=== PATIENT | female | born 1990 | race Caucasian/White ===

== ENCOUNTER 2016-07-29 06:15 | Inpatient (IN) | payer OTHER ==
[2016-07-29] MEDS ORDERED: SODIUM CHLORIDE 0.9% 500 ML IV PRN (07:00)
[2016-07-29] MEDS ORDERED: NALOXONE HCL 0.4 MG/ML VIAL IV PRN (07:00)
[2016-07-29] MEDS ORDERED: EPHEDRINE SULFATE 50 MG/ML 1ML VIAL IV PRN (07:00)
[2016-07-29] MEDS ORDERED: LACTATED RINGERS 1,000 ML IV SCH (07:00)
[2016-07-29] MEDS ORDERED: ONDANSETRON 4 MG/2ML 2 ML VIAL IV PRN (07:00)
[2016-07-29] MEDS ORDERED: DIPHENHYDRAMINE HCL 50 MG/1 ML VIAL IV PRN (07:00)
[2016-07-29] MEDS ORDERED: LACTATED RINGERS 500 ML IV PRN (07:00)
[2016-07-29] MEDS ORDERED: NALBUPHINE HCL 20 MG/ML AMP IV PRN (07:00)
[2016-07-29] MEDS ORDERED: METOCLOPRAMIDE HCL 5 MG/ML 2ML VIAL IV PRN (07:00)
[2016-07-29] MEDS ORDERED: IV START KIT ONE (07:14)
[2016-07-29] MEDS ORDERED: SODIUM CHLORIDE 0.9% FLUSH 10 ML ONE (07:14)
[2016-07-29] MEDS ORDERED: OXYTOCIN 10 UNITS/ML VIAL ONE (07:14)
[2016-07-29] MEDS ORDERED: MINERAL OIL 25 ML BOT ONE (07:14)
[2016-07-29] MEDS ORDERED: LIDOCAINE 1% (PRES FREE) 30 ML VIAL ONE (07:14)
[2016-07-29] MEDS ORDERED: PUMP TUBING ONE (07:15)
[2016-07-29] MEDS ORDERED: OXYTOCIN IN LR 0 ML IV ONE (07:15)
[2016-07-29] MEDS ORDERED: LIDOCAINE Viscous 2% 15 ML UDCUP ONE (07:15)
[2016-07-29 07:56] LABS: HEMOGLOBIN 13.6 gm/l (12.0-16.0); MEAN CELL VOLUME 91.7 fl (81.0-99.0); MEAN CORPUSCULAR HEMOGLOBIN 31.2 pg (27.0-31.0); RED CELL DISTRIBUTION WIDTH 12.4 % (11.5-14.5)
[2016-07-29 08:25] VITALS: BMI 23.1
[2016-07-29] MEDS ORDERED: LACTATED RINGERS 1,000 ML ONE (08:25)
[2016-07-29] MEDS ORDERED: FENTANYL/ROPIVACAINE EPIDURAL 250 ML EP ONE (08:26)
[2016-07-29] MEDS ORDERED: EPIDURAL PUMP SET ONE (08:26)
[2016-07-29] MEDS: LACTATED RINGERS 1,000 ML IV SCH ×3 (08:45→15:41)
[2016-07-29] MEDS ORDERED: EPIDURAL PROCEDURE TRAY ONE (08:58)
[2016-07-29] MEDS ORDERED: BUPIVACAINE 0.25% (PRES FREE) 30 ML VIAL ONE (08:58)
[2016-07-29] MEDS: FENTANYL/ROPIVACAINE EPIDURAL 250 ML EP SCH (09:20)
--- NOTE | 2016-07-29 15:15 | PCMAN ---
OB Admission Note - History : 1 Term: 0 : 0 Abortions (S&E): 0 Livin EDC:: 08/05/16 Gestational Age (weeks): 39 Days (#/7): 0 Admit Cervical Dilation:: 4.5 Admit Cervical Effacement (%):: 70 Admit Station:: -1 Admit Presentaton:: cephalic Membrane Status: Ruptured Rupture (Date): 07/29/16 Rupture (Time): 04:00 Labor Onset (Date): 07/29/16 Contractions: Yes Contraction Frequency:: q 2.5-3.5 minutes, lasting 40-80 seconds Heart Rate:: 130 (moderate variability, accels present, no decels) Status:: Cat I EFW:: 6lb 8oz Summary of Course:: onset of care at 7w5d for 14 visits, dating by sure LMP and verified by first trimester US US at 8w2d, small perigestational hemorrhage US at 13w, small perigestational hemorrhage US at 29w2d, for S<D, normal growth, MANSOOR 17.5 US at 34w, for S<D, normal growth complicated by Denominational (declines blood products), and measuring S<D (normal growth on US) - Labs Blood Type: A (+) positive Hct/Hgb:: 11.3 Rubella Status: Immune GBS Status: Negative Abnormal Labs: None - Review of Systems all negative, some mild constipation - Physical Exam General: Afebrile Psych/Mental Status: Mood/Affect Appropriate Neurological: Grossly Intact, Alert Abdomen: Other (contractions q 2.5-3.5 minutes) Genitourinary: Normal Female Genitalia (SVE- 4.5/70/-1, cervix soft and midposition) - Problems (1) Active labor at term Status: Acute Code: [id number] Assessment/Plan: A: IUP at 39w GBS negative ROM x 3 hours, SOOC Moving into active labor Denominational- declining blood products Category I P: Admit to [facility]BC, place saline lock, order CBC Patient desires to have unmedicated , but feels uncertain as labor increases in intensity, Encouraged to keep using movement and hydrotherapy, Increase hands on support as labor increases Keep exams to minimum Anticipate IA per protocol as status remains reassuring DO Coronel
--- NOTE | 2016-07-29 15:17 | PDOC36 ---
Provider Note Subject: CNM Labor Progress Note Note: S: Florencia is resting with a recently placed epidural. Feels relief from contractions, mild irritation/ pressure from catheter placement. Reassured that this should decrease with epidural. Feels good about her decision, used tub for pain relief prior to epidural placement, reports that contractions were difficult to get on top of. Supported by mother in law Alberta and Seng. O: VSS BP 108/64, P 78 bpm, T98.0, RR 20/min cEFM: baseline 120, moderate variability, accelerations 15x15 present, no decelerations TOCO: contractions 2-5 minutes apart, lasting 40-60 seconds apart A: IUP at 39 weeks Category I Active labor GBS neg ROM x [address] Hoahaoism- declining blood products P: Discussed balancing resting with epidural and changing positions. cEFM Explained how epidural changes sensations of labor, what 2nd stage may feel like , and to notify us if there is an increase in pelvic pressure DO Coronel
[2016-07-29] MEDS ORDERED: HYDROCODONE/ACETAMINOPHEN 5/325MG TABLET PO PRN (20:18)
[2016-07-29] MEDS ORDERED: ACETAMINOPHEN 325 MG TABLET PO PRN (20:18)
[2016-07-29] MEDS ORDERED: LANOLIN 50 APPLIC/7G TUBE TP PRN (20:18)
[2016-07-29] MEDS ORDERED: BENZOCAINE/MENTHOL 60 APPLIC/BOT TP PRN (20:18)
[2016-07-29] MEDS ORDERED: CALCIUM CARBONATE 500 MG TAB.CHEW PO PRN (20:18)
--- NOTE | 2016-07-29 21:18 | PDOC36 ---
Provider Note Subject: CNM Labor Progress Note Note: S: Resting with contractions, feels pressure with contractions, but states that it is not continuous. Able to nap and rest. O: VSS BP 100/53, P 75 bpm, T98.2, RR 18/min cEFM: baseline 135, moderate variability, accelerations absent, variable decelerations TOCO: contractions 2-3 minutes apart, lasting 60-120 seconds apart A: IUP at 39 weeks Category II Active labor GBS neg ROM x [address] Restorationist- declining blood products P: Discussed to notify RN/ CNM team when pressure is felt between contractions Anticipate DO Coronel
--- NOTE | 2016-07-29 21:28 | PCMDEL ---
<Priya Mederos - Last Filed: 07/29/16 20:26> Delivery Note - Labor 1st stage (hr/min):: 15 hr 19 min 2nd stage (hr/min):: 2 hr 05 min 3rd stage (hr/min):: 0 hr 08 min Total (hr/min):: 17 hr 32 min Pushed (hr/min):: 1 hr 41 min - Delivery Delivery (Date): 07/29/16 Delivery (Time): 17:41 Gender: Male Weight: 7 lb 2 oz Length: 8.17 in Presentation: Cephalic Position: OA Umbilical Cord: 3 Vessel Delayed Cord Clamping:: > 3 min 1 Minute Total: 9 5 Minute Total: 9 Placenta:: complete, membranes trailing and intact EBL:: 300 Perineum:: 2nd degree laceration, see note Suture:: 3.[address] Anesthesia/Meds:: epidural Length ROM:: 17 hr 24 min Comments:: Concha Garces is a 25 year old at 39 weeks, who called with a complaint of ROM on 07/29/15 at 0400. She reported SOOC soon after rupture and came to the [facility]. Upon admission at 0645 on 07/29/15, she was found to be 4.5/70/-1 and was moving into active labor. Her was complicated by S<D with normal growth ultrasound and a small perigestational hemorrhage in the first trimester. She declines blood transfusion for zoroastrian reasons, was GBS negative, and had normal labs throughout . During the first stage of labor, she used hydrotherapy and movement for coping and requested an epidural for pain management. Her labor progressed upon a normal course with Category I tracing throughout the first stage. She was found to be complete at 1536 and labored down for approximately 20 minutes. For second stage, Florencia utilized a variety of positions and pushed effectively with contractions. Variable decelerations to the 90s were noted, most variables were <60 seconds and recovered with moderate variability, three variable decelerations lasted approximately 2 minutes and were responsive to ameliorative measures- oxygen, position changes, and pushing with every other contraction. She achieved a of baby boy, Nain, at 1741 on 07/29/16. Apgars were 9 and 9. Shoulders delivered easily and baby was brought to maternal abdomen. Delayed cord clamping was facilitated for greater than four minutes. [place] had elevated temperatures in immediate , no other s/s of infection, will be worked up for infection with antibiotic course started. Please see note. Placenta delivered easily in Gonzalez position, trailing membranes were resolved by twisting the placenta. 3VC was noted. Fundus was found to be firm and at umbilicus. Mild bleeding was noted, fundal massage expresed small clots. EBL was 300mL. Visualization of the perineum revealed small (<0.5cm) bilateral periurethral 1st degree lacerations, left one was repaired to avoid adhesion. A small right labial laceration was noted and repaired with interrupted sutures. A shallow second degree perineal laceration was repaired in the usual fashion. Suture used was 3.0 vicryl suture. Patient was hemostatic and used epidural for pain relief during repair. Baby was latched by 30 minutes, mom and baby were stable. DO Coronel <Cezar Betancourt - Last Filed: 07/29/16 21:27> Delivery Note - Delivery Comments:: During 2nd stage, tachycardia was noted with the baseline as high as 165. Highest maternal temperature during labor was 99.2F and immediately after delivery was 99.5F. Fluid remained clear without mal odor. Prior to delivery, a diagnosis of chorioamnionitis was not made because diagnostic criteria was not met, however the was noted to have elevated temperatures and heartrate immediately after . On-call peds was notified of status, who plans to do an infection work-up.
[2016-07-29] MEDS ORDERED: MENTHOL/CETYLPYRD 1 EACH LOZENGE PO PRN (22:14)
[2016-07-29] MEDS: IBUPROFEN 800 MG TABLET PO SCH (22:27)
[2016-07-30] MEDS: IBUPROFEN 800 MG TABLET PO SCH ×4 (04:30→22:39)
[2016-07-30] MEDS: DOCUSATE SODIUM 100 MG CAPSULE PO SCH (10:09)
[2016-07-31] MEDS: IBUPROFEN 800 MG TABLET PO SCH ×3 (04:25→18:42)
[2016-07-31] MEDS: DOCUSATE SODIUM 100 MG CAPSULE PO SCH (08:16)
--- NOTE | 2016-07-31 09:04 | PDOC44 ---
- Subjective Day: 1 S: Resting in bed. Supported at bedside by sister, mother and FOB. Very happy about experience. Reports that pain is well managed with Ibuprofen. Bleeding getting pt sitter. Laceration sore but patient able to ambulate and void without difficulty. exclusively. Infant drowsy and has only had one good latch so far. Patient waking every 3 hours to feed and hand expressing colostrum. Reports Pain Tolerable, Reports , Reports Lochia Light, Reports Tolerating Clear Liquids, Reports Tolerating Regular Diet, Denies Vomiting, Denies Fever - Objective Temp Pulse Resp BP Pulse Ox 97.4 F 77 16 107/64 07/31/16 08:00 07/31/16 08:00 07/31/16 08:00 07/31/16 08:00 Current Medications Generic Name Dose Route Start Last Admin Trade Name Freq PRN Reason Stop Dose Admin Acetaminophen 325 - 650 mg 07/29/16 20:18 Tylenol PO Q4H PRN Pain (Mild) Acetaminophen/Hydrocodone Bitart 1 - 2 tab 07/29/16 20:18 [place] 5/325 PO Q4H PRN Pain (Moderate) Benzocaine/Menthol 1 applic 07/29/16 20:18 07/30/16 10:09 Dermoplast TP 1 bot PRN PRN Administration Patient Comfort Benzocaine/Menthol 1 each 07/29/16 22:14 07/29/16 22:27 Cepacol PO 1 each Q2H PRN Administration Sore Throat Calcium Carbonate/Glycine 500 - 1,000 mg 07/29/16 20:18 Tums PO BID PRN Indigestion Docusate Sodium 100 mg 07/30/16 09:00 07/31/16 08:16 Colace PO 100 mg DAILY GIANNI Administration Emollient Ointment 1 applic 07/29/16 20:18 07/30/16 18:33 [id number]-[id number] TP 1 tube PRN PRN Administration sore nipples Ropivacaine/Fentanyl/NS 250 mls @ 0 mls/hr 07/29/16 07:00 07/29/16 09:20 Fentanyl 2 Mcg/Ml + Ropivacaine 0.125% Ep Bag EP 10 mls/hr EPI GIANNI Administration Protocol Per Protocol Ibuprofen 800 mg 07/29/16 21:00 07/31/16 04:25 Motrin PO 800 mg Q6H GIANNI Administration Sodium Chloride 10 ml 07/29/16 20:18 Normal Saline 10ml Flush IV PRN PRN IV Flush Sodium Chloride 10 ml 07/30/16 01:00 Normal Saline 10ml Flush IV Q8HR GIANNI - Physical Exam General: Afebrile, No Acute Distress Psych/Mental Status: Mood/Affect Appropriate, Judgment/Insight Intact, Bonding Well Neurological: Grossly Intact, Alert, Oriented x 4 Breast: Soft, Skin intact, Nipples Intact, No Tenderness, No Erythema Fundus: Firm, Midline, Below Umbilicus Genitourinary: Normal Female Genitalia, Edema (mild), Other (Sutures intact; laceration approximated) Lochia: Light Extremities: Full ROM, No Edema - Problems:Assessment/Plan (1) care and examination of lactating mother Status: Acute Assessment/Plan: Day 1 Stable course Plan: Anticipate discharge tomorrow Encouraged support tonight with breast feeding as becomes more vigorous Discussed followup Disposition: Anticipate DC to Home
--- NOTE | 2016-07-31 09:39 | PDOC39B ---
Hospital Course: ADMIT DATE: 07/29/16 DISCHARGE DATE: 07/31/16 ADMISSION DIAGNOSES: Active Labor PROCEDURES: HISTORY OF PRESENT ILLNESS: 25 year old G1 T0 L0 at 39 weeks 0 days presenting with active labor. HOSPITAL COURSE: The patient is doing well this morning. She didn't sleep much last night and complains of a headache this morning. Encouraged to take Tylenol or Ibuprofen. She is - the baby had a long stretch between feeds last night, almost 12 hours. Discussed how baby's can have a lack of interest in in the first 24 hours and then the next day they usually wake up and want to nurse more. Encouraged Florencia to wake the baby about every 3 hours if he doesn't wake up by himself. Night time feedings are important and without those he will lose too much weight. Also advised seeing before she leaves and following up with them after discharge. She reports minimal bleeding and cramping. Eating, drinking and voiding without problems. Requests Ibuprofen to take home. All questions answered. By day of discharge the patient is stable, well and ready to go home. - Physical Exam Vital Signs: Temp Pulse Resp BP Pulse Ox 97.4 F 77 16 107/64 07/31/16 08:00 07/31/16 08:00 07/31/16 08:00 07/31/16 08:00 General: Afebrile Psych/Mental Status: Mood/Affect Appropriate Neurological: Grossly Intact HEENT: Atraumatic Cardiovascular: Regular Rate and Rhythm Breast: Soft, Skin intact Fundus: Firm Genitourinary: Normal Female Genitalia Lochia: Light Rectal Exam: Deferred Extremities: Full ROM - Discharge Diagnosis (1) Normal course Status: Acute - Discharge Plan Condition: Good Disposition: Home Additional Instructions: Midwifery 'After the ' handout given to patient. Prescriptions: Ibuprofen [Motrin] 800 mg PO Q8H PRN #120 tablet PRN Reason: Pain Discharge Medications: Ibuprofen Follow-Up: Herlinda Ennis CNM [Certified Nurse Restaurant Kitchen And Service Manager] - In 2 weeks
[2016-07-31] MEDS: FENTANYL/ROPIVACAINE EPIDURAL 250 ML EP SCH (12:36)
[2016-07-31 16:13] VITALS: BP 106/63
== END 2016-07-31 21:05 | disposition home or self-care (01) | DRG 774 ==
LOC: FBC 06:15 → FBCOUT 06:15 → FBC 06:45
PROVIDERS: ADMIT Advanced Practice Midwife; ATTEND Licensed Practical Nurse
PROC: 10E0XZZ Delivery of Products of Conception, External Approach (ICD-10-PCS; principal; 2016-07-29)
PROC: 0KQM0ZZ Repair Perineum Muscle, Open Approach (ICD-10-PCS; 2016-07-29)
PROC: 00HU33Z Insertion of Infusion Device into Spinal Canal, Percutaneous Approach (ICD-10-PCS; 2016-07-29)
DX: O76 Abnormality in fetal heart rate and rhythm complicating labor and delivery (principal); O73.1 Retained portions of placenta and membranes, without hemorrhage; O70.1 Second degree perineal laceration during delivery; Z3A.39 39 weeks gestation of pregnancy; Z37.0 Single live birth

== ENCOUNTER 2016-08-02 14:17 | Outpatient (CLI) | payer OTHER | END 2016-08-02 14:18 | disposition home or self-care (01) | LOC: BABIESSH 14:17 | PROVIDERS: ATTEND Advanced Practice Midwife | DX: Z39.1 Encounter for care and examination of lactating mother (principal) ==

== ENCOUNTER 2016-08-05 10:00 | Outpatient (CLI) | payer OTHER | END 2016-08-05 10:01 | disposition home or self-care (01) | LOC: FBCOUT 10:00 → BABIESSH 10:01 | PROVIDERS: ATTEND Advanced Practice Midwife | DX: Z39.1 Encounter for care and examination of lactating mother (principal) ==